=== PATIENT | female | born 1945 | race Caucasian/White ===

== ENCOUNTER 2016-10-13 15:53 | Emergency (ER) | payer MEDICARE ==
[~2016-10-13] VITALS: Ht 167.6 cm; Wt 77.0 kg
[~2016-10-13 15:53] MED LIST: BUSP5TAB3 PO; CLIN1CAP6 PO; HYDR-3533 PO; MELA3CAP2 PO
[2016-10-13 16:00] VITALS: BP 117/82; PULSE 106; RESP 16; TEMP 98.4; O2SAT 99
[2016-10-13] MEDS ORDERED: SODIUM CHLORIDE 0.9% FLUSH 5 ML FLUSH IVF PRN (16:30)
[2016-10-13] MEDS ORDERED: SODIUM CHLOR 0.9% 1000 ML INJ 1,000 ML IV ONE (16:45)
[2016-10-13 16:58] VITALS: O2SAT 99
[2016-10-13 17:01] LABS: BLOOD, URINE TRACE (NEG); GLUCOSE,URINE NEG (NEG); KETONE, URINE NEG (NEG); NITRITE,URINE NEG (NEG)
[2016-10-13 17:08] LABS: METHOD OF COLLECTION CLEAN CATCH; URINE COLOR YELLOW (YELLW/STRAW)
[2016-10-13 17:09] LABS: BACTERIA, URINE RARE /hpf; COMMENT (UR) CULT NOT INDICATED; CULTURE IF INDICATED CULT NOT INDICATED; SQUAMOUS EPITHELIAL CELL URINE > 8 /hpf (0-5)
[2016-10-13 17:13] LABS: AUTOMATED NEUTROPHIL # 3.7 TH/MM3 (1.8-7.7); BASOPHIL % 0.4 % (0.0-2.0); EOSINOPHIL # 0.1 TH/MM3 (0-0.4); EOSINOPHIL % 1.6 % (0.0-4.0); HEMO FLAGS DIFF FINAL; LYMPHOCYTE # 3.1 TH/MM3 (1.0-4.8); MEAN CELL VOLUME 91.9 FL (80.0-100.0); MEAN CORPUSCULAR HEMOGLOBIN 30.7 PG (27.0-34.0); MEAN CORPUSCULAR HGB CONC 33.4 % (32.0-36.0); MONO % 8.7 % (0.0-8.0); NEUT % 48.3 % (16.0-70.0); PLATELET COUNT 344 TH/MM3 (150-450); RED BLOOD COUNT 4.57 MIL/MM3 (4.00-5.30); RED CELL DISTRIBUTION WIDTH 12.5 % (11.6-17.2); WHITE BLOOD COUNT 7.6 TH/MM3 (4.0-11.0)
[2016-10-13 17:21] LABS: CHLORIDE 103 MEQ/L (98-107); SODIUM (NA) 142 MEQ/L (136-145)
[2016-10-13 17:25] LABS: ANION GAP 9 MEQ/L (5-15); BICARBONATE 29.8 MEQ/L (21.0-32.0); BLOOD UREA NITROGEN 16 MG/DL (7-18)
[2016-10-13 17:27] LABS: ALT (GPT) 36 U/L (10-53); AST (GOT) 16 U/L (15-37)
[2016-10-13 17:28] LABS: GLOMERULAR FILTRATION RATE 57 ML/MIN (>89)
[2016-10-13 17:29] LABS: TOTAL BILIRUBIN ADULT 0.3 MG/DL (0.2-1.0)
[2016-10-13 17:30] LABS: ALKALINE PHOSPHATASE 54 U/L (45-117)
[2016-10-13] MEDS ORDERED: IOHEXOL 300 MG/ML 50 ML BTL (for RAD DIAG) IV ONE (18:11)
--- NOTE | 2016-10-13 18:29 | RADHPO ---
EXAM DATE/TIME: 10/13/2016 18:05 [facility] COMPARISON: No previous studies available for comparison. INDICATIONS : Left lower abdomen pain for two days. IV CONTRAST: 85 cc Omnipaque 300 (iohexol) IV ORAL CONTRAST: No oral contrast ingested. RADIATION DOSE: 11.18 CTDIvol (mGy) MEDICAL HISTORY : Carcinoma, breast. SURGICAL HISTORY : Mastectomy, right. section. ENCOUNTER: Initial ACUITY: 1 day PAIN SCALE: 0/10 LOCATION: Left lower quadrant TECHNIQUE: Volumetric scanning of the abdomen and pelvis was performed. Using automated exposure control and ad justment of the mA and/or kV according to patient size, radiation dose was kept as low as reasonably achievable to obtain optimal diagnostic quality images. FINDINGS: LOWER LUNGS: The visualized lower lungs are clear. LIVER: Mild diffuse increase in hepatic density, likely steatosis with some focal sparing in the left lobe. No evidence of mass or biliary ductal dilatation. Tiny calcified gallstones. SPLEEN: Normal size without lesion. PANCREAS: Within normal limits. KIDNEYS: Normal in size and shape. There is no mass, stone or hydronephrosis. ADRENAL GLANDS: Within normal limits. VASCULAR: There is no aortic aneurysm. BOWEL/MESENTERY: Prominent distal colonic diverticulosis. No evidence of abnormal wall thickening, dilatation or focal inflammatory change. No extraluminal gas or fluid. ABDOMINAL WALL: Within normal limits. RETROPERITONEUM: There is no lymphadenopathy. BLADDER: No wall thickening or mass. REPRODUCTIVE: Within normal limits. INGUINAL: There is no lymphadenopathy or hernia. MUSCULOSKELETAL: Within normal limits for patient age. CONCLUSION: Hepatic steatosis. Gallstones. Colonic diverticulosis without definite CT findings of diverticulitis. Reji Lui MD on October 13, 2016 at 18:23 Board Certified Radiologist. This report was verified electronically.
[2016-10-13] MEDS ORDERED: ZOFR4TAB3 SL (18:57)
--- NOTE | 2016-10-13 18:57 | PD ---
HPI Chief Complaint: General Weakness Time Seen by Provider: 16:26 Travel History International Travel<30 days: No Contact w/Intl Traveler<30days: No Traveled to known affect area: No History of Present Illness HPI Patient is 71-year-old female presents today with fatigue for the past day. Patient states that 3 days ago she had abdominal cramping in the left lower quadrant thought she might be having a bout of diverticulitis. She states her abdominal pain has been resolved by by the time she arrived in the emergency department. She states she just feels rundown and fatigued and wanted to have her blood counts checked to make sure she wasn't anemic. Patient states she's had some nausea without vomiting no diarrhea no constipation. No fevers no blood in the stool. No dysuria. PFSH Past Medical History Cancer: Yes (BREAST) Diabetes: No Diminished Hearing: No Tetanus Vaccination: > 5 Years Influenza Vaccination: Yes ?: Not Menopausal: Yes Past Surgical History Section: Yes Gynecologic Surgery: Yes (RT BREAST MASTECTOMY) Other Surgery: Yes (MOD RIGHT MASTECTOMY. ) Social History Alcohol Use: No Tobacco Use: No Substance Use: No Allergies-Medications (Allergen,Severity, Reaction): Coded Allergies: Avelox (Verified Allergy, Severe, Anaphylaxis, 10/13/16) Levaquin (Verified Allergy, Severe, Anaphylaxis, 10/13/16) Reported Meds & Prescriptions Reported Meds & Active Scripts Active Flagyl (Metronidazole) 500 Mg Tab 500 Mg PO BID 7 Days Keflex (Cephalexin) 500 Mg Cap 500 Mg PO Q6H 7 Days Zofran Odt (Ondansetron Odt) 4 Mg Tab 4 Mg SL Q6HR PRN Review of Systems Except as stated in HPI: all other systems reviewed are Neg Physical Exam Narrative GENERAL: [Well-developed well-nourished in no apparent distress SKIN: Warm and dry. HEAD: Atraumatic. Normocephalic. EYES: Pupils equal and round. No scleral icterus. No injection or drainage. ENT: No nasal bleeding or discharge. Mucous membranes pink and moist. NECK: Trachea midline. No JVD. CARDIOVASCULAR: Regular rate and rhythm. No murmur appreciated. RESPIRATORY: No accessory muscle use. Clear to auscultation. Breath sounds equal bilaterally. GASTROINTESTINAL: Abdomen soft, non-tender, nondistended. Hepatic and splenic margins not palpable. MUSCULOSKELETAL: No obvious deformities. No clubbing. No cyanosis. No edema. NEUROLOGICAL: Awake and alert. No obvious cranial nerve deficits. Motor grossly within normal limits. Normal speech. PSYCHIATRIC: Appropriate mood and affect; insight and judgment normal. Data Data Last Documented VS Vital Signs Date Time Temp Pulse Resp B/P Pulse Ox O2 Delivery O2 Flow Rate FiO2 10/13/16 19:36 98 10/13/16 19:05 82 16 124/69 Room Air 10/13/16 16:00 98.4 Orders Complete Blood Count With Diff (10/13/16 16:27) Comprehensive Metabolic Panel (10/13/16 16:27) Lipase (10/13/16 16:27) Urinalysis - C+S If Indicated (10/13/16 16:27) Iv Access Insert/Monitor (10/13/16 16:27) Ecg Monitoring (10/13/16 16:27) Oximetry (10/13/16 16:27) Sodium Chloride 0.9% Flush (Ns Flush) (10/13/16 16:30) Electrocardiogram (10/13/16 16:27) Troponin I (10/13/16 16:27) Sodium Chlor 0.9% 1000 Ml Inj (Ns 1000 M (10/13/16 16:45) Ct Abd/Pel W Iv Contrast(Rout) (10/13/16 ) Iohexol 300 Inj (Omnipaque 300 Inj) (10/13/16 18:11) Cephalexin (Keflex) (10/13/16 19:15) Metronidazole (Flagyl) (10/13/16 19:15) Labs Laboratory Tests Test 10/13/16 10/13/16 16:45 16:50 Urine Collection Type CLEAN CATCH Urine Color YELLOW Urine Turbidity CLEAR Urine pH 6.0 Urine Specific [place] 1.022 Urine Protein NEG mg/dL Urine Glucose (UA) NEG mg/dL Urine Ketones NEG mg/dL Urine Occult Blood TRACE Urine Nitrite NEG Urine Bilirubin NEG Urine Leukocyte Esterase TRACE Urine RBC 4-9 /hpf Urine WBC 6-8 /hpf Urine Squamous Epithelial > 8 /hpf Cells Urine Bacteria RARE /hpf Microscopic Urinalysis Comment CULT NOT INDICATED Urine Collection Time 16:45 White Blood Count 7.6 TH/MM3 Red Blood Count 4.57 MIL/MM3 Hemoglobin 14.1 GM/DL Hematocrit 42.0 % Mean Corpuscular Volume 91.9 FL Mean Corpuscular Hemoglobin 30.7 PG Mean Corpuscular Hemoglobin 33.4 % Concent Red Cell Distribution Width 12.5 % Platelet Count 344 TH/MM3 Mean Platelet Volume 7.1 FL Neutrophils (%) (Auto) 48.3 % Lymphocytes (%) (Auto) 41.0 % Monocytes (%) (Auto) 8.7 % Eosinophils (%) (Auto) 1.6 % Basophils (%) (Auto) 0.4 % Neutrophils # (Auto) 3.7 TH/MM3 Lymphocytes # (Auto) 3.1 TH/MM3 Monocytes # (Auto) 0.7 TH/MM3 Eosinophils # (Auto) 0.1 TH/MM3 Basophils # (Auto) 0.0 TH/MM3 CBC Comment DIFF FINAL Differential Comment Sodium Level 142 MEQ/L Potassium Level 4.0 MEQ/L Chloride Level 103 MEQ/L Carbon Dioxide Level 29.8 MEQ/L Anion Gap 9 MEQ/L Blood Urea Nitrogen 16 MG/DL Creatinine 0.96 MG/DL Estimat Glomerular Filtration 57 ML/MIN Rate Random Glucose 106 MG/DL Calcium Level 9.4 MG/DL Total Bilirubin 0.3 MG/DL Aspartate Amino Transf 16 U/L (AST/SGOT) Alanine Aminotransferase 36 U/L (ALT/SGPT) Alkaline Phosphatase 54 U/L Troponin I LESS THAN 0.02 NG/ML Total Protein 8.1 GM/DL Albumin 3.8 GM/DL Lipase 169 U/L MDM Medical Decision Making Medical Screen Exam Complete: Yes Emergency Medical Condition: Yes Interpretation(s) EKG shows normal sinus rhythm with normal axis normal R-wave progression. No concerning ST T changes intervals within normal limits. This normal EKG. Differential Diagnosis Diverticulitis, dehydration, acute kidney injury, electrolyte abnormality, cardiac etiology unlikely, fatigue, gastritis, gastritis, colitis. Narrative Course Patient was roomed in the emergency department, pain-free on arrival. Patient was given 1 L normal saline. Labs are reassuring. However patient does have microscopic hematuria. Nitrate and leukocyte Estrace free. Discussed with the patient need to consider CAT scan as part of his workup for hematuria and she is agreeable. CAT scan shows diverticulosis without diverticulitis. No masses observed. Will treat with Keflex that she has a Levaquin allergy, as well as Flagyl for probable diverticulitis flare now resolved. Discussed need follow- up with primary care physician and return to ED criteria. She isn't amenable and feels well on discharge. Stable for discharge. Diagnosis Primary Impression: Abdominal cramping Additional Impressions: Dehydration Fatigue Med/Other Pt SpecificInfo: Prescription(s) given Scripts Metronidazole (Flagyl)500 Mg [id number] Mg PO BID 7 Days Ref 0 Prov:Ranjit Garg MD 10/13/16 Cephalexin (Keflex)500 Mg [id number] Mg PO Q6H 7 Days Ref 0 Prov:Ranjit Garg MD 10/13/16 Ondansetron Odt (Zofran Odt)4 Mg Tab4 Mg SL Q6HR PRN (Nausea/Vomiting) #30 TAB Ref 0 Prov:Ranjit Garg MD 10/13/16 Disposition: 01 DISCHARGE HOME Condition: Stable Ranjit Garg MD Oct 13, 2016 18:57
[2016-10-13 19:05] VITALS: BP 124/69; PULSE 82; RESP 16; O2SAT 98
[2016-10-13] MEDS ORDERED: METR-1 PO (19:08)
[2016-10-13] MEDS ORDERED: CEPH-460 PO (19:08)
[2016-10-13] MEDS ORDERED: CEPHALEXIN MONOHYDRATE 500 MG CAP PO ONE (19:15)
[2016-10-13] MEDS ORDERED: metroNIDAZOLE 500 MG TAB PO ONE (19:15)
--- NOTE | 2016-10-14 17:13 | EKG ---
Date Performed: 10/13/2016 Time Performed: 16:32:36 PTAGE: 71 years EKG: Sinus rhythm Undulating baseline may affect reading NO PREVIOUS TRACING DOCTOR: Heraclio Hyde Interpretating Date/Time 10/14/2016 17:11:09
== END 2016-10-13 19:31 | disposition home or self-care (01) ==
LOC: PHED 15:53
DX: R10.9 Unspecified abdominal pain (principal); E86.0 Dehydration; R53.83 Other fatigue; R11.0 Nausea; R31.29 Other microscopic hematuria; K57.90 Diverticulosis of intestine, part unspecified, without perforation or abscess without bleeding; Z85.3 Personal history of malignant neoplasm of breast
CPT/HCPCS: 74177; 80053; 81001; 83690; 84484; 85025; 93005; 96360; 99284; J7030; Q9967

== ENCOUNTER 2017-04-04 06:26 | Emergency (ER) | payer MEDICARE ==
[~2017-04-04] VITALS: Ht 167.6 cm; Wt 77.3 kg
[~2017-04-04 06:26] MED LIST changes: -BUSP5TAB3 PO; +CEPH-460 PO; -CLIN1CAP6 PO; -HYDR-3533 PO; -MELA3CAP2 PO; +METR-1 PO; +ZOFR4TAB3 SL
[2017-04-04 06:36] VITALS: BP 122/81; PULSE 84; RESP 16; TEMP 98; O2SAT 97
--- NOTE | 2017-04-04 07:16 | PD ---
HPI Chief Complaint: General Weakness Time Seen by Provider: 07:15 Travel History International Travel<30 days: No Contact w/Intl Traveler<30days: No Traveled to known affect area: No History of Present Illness HPI 71-year-old female came to the emergency room with history of feeling lightheaded since yesterday. Patient went to see her primary care where her UA was checked and she was diagnosed with UTI. She was discharged home on Bactrim. Patient says she has taken 2 pills so far and has been drinking fluid. She feels a little bit better but this morning when she woke up she was still was little lightheaded. No history of vomiting or diarrhea. She feels a little nauseous. Feels like she is little disbalance. Vital signs were otherwise stable. Patient had history of breast cancer. Ears ago and is in total remission now as per her. She is not on any daily medications she said. Otherwise is healthy. She told me she usually does not drink a lot of fluid and thinks she could be dehydrated. [facility] Past Medical History Narrative Medical List of her past medical, surgical, social and family history was reviewed from the nursing note. Cancer: Yes (BREAST) Diabetes: No Diminished Hearing: No Menopausal: Yes Past Surgical History Section: Yes Gynecologic Surgery: Yes (RT BREAST MASTECTOMY) Other Surgery: Yes (MOD RIGHT MASTECTOMY. ) Social History Alcohol Use: No Tobacco Use: No Substance Use: No Allergies-Medications (Allergen,Severity, Reaction): Coded Allergies: Avelox (Verified Allergy, Severe, Anaphylaxis, 10/13/16) Levaquin (Verified Allergy, Severe, Anaphylaxis, 10/13/16) Comments List of her allergies reviewed from the nursing note. Reported Meds & Prescriptions Reported Meds & Active Scripts Active Reported Bactrim DS (Sulfamethoxazole-Trimethoprim) 800-160 Mg Tab 1 Tab PO BID Narrative Medication List of her home medications reviewed from the nursing note. Review of Systems Except as stated in HPI: all other systems reviewed are Neg Physical Exam Narrative GENERAL: Awake, alert, moderate distress SKIN: Focused skin assessment warm/dry. HEAD: Atraumatic. Normocephalic. EYES: Pupils equal and round. No scleral icterus. No injection or drainage. ENT: No nasal bleeding or discharge. Dry mucous membrane NECK: Trachea midline. No JVD. CARDIOVASCULAR: Regular rate and rhythm. No murmur appreciated. RESPIRATORY: No accessory muscle use. Clear to auscultation. Breath sounds equal bilaterally. GASTROINTESTINAL: Abdomen soft, non-tender, nondistended. Hepatic and splenic margins not palpable. MUSCULOSKELETAL: No obvious deformities. No clubbing. No cyanosis. No edema. NEUROLOGICAL: Awake and alert. No obvious cranial nerve deficits. Motor grossly within normal limits. Normal speech. PSYCHIATRIC: Appropriate mood and affect; insight and judgment normal. Data Data Last Documented VS Vital Signs Date Time Temp Pulse Resp B/P Pulse Ox O2 Delivery O2 Flow Rate FiO2 04/04/17 08:43 84 16 149/79 82 16 156/82 88 16 139/73 04/04/17 07:52 98 Room Air 04/04/17 06:36 98.0 Orders Urinalysis - C+S If Indicated (04/04/17 07:05) Complete Blood Count With Diff (04/04/17 07:28) Comprehensive Metabolic Panel (04/04/17 07:28) Lipase (04/04/17 07:28) Iv Access Insert/Monitor (04/04/17 07:28) Ecg Monitoring (04/04/17 07:28) Oximetry (04/04/17 07:28) Sodium Chloride 0.9% Flush (Ns Flush) (04/04/17 07:30) Electrocardiogram (04/04/17 07:28) Troponin I (04/04/17 07:28) Sodium Chlorid 0.9% 500 Ml Inj (Ns 500 M (04/04/17 07:45) Ct Brain W/O Iv Contrast(Rout) (04/04/17 ) Labs Laboratory Tests Test 04/04/17 04/04/17 07:09 07:49 Urine Collection Type CLEAN CATCH Urine Color YELLOW Urine Turbidity CLEAR Urine pH 6.0 Urine Specific [place] 1.015 Urine Protein NEG mg/dL Urine Glucose (UA) NEG mg/dL Urine Ketones NEG mg/dL Urine Occult Blood TRACE Urine Nitrite NEG Urine Bilirubin NEG Urine Leukocyte Esterase SMALL Urine RBC 0-3 /hpf Urine WBC 3-5 /hpf Urine Squamous Epithelial 6-8 /hpf Cells Urine Bacteria OCC /hpf Microscopic Urinalysis Comment CULT NOT INDICATED Urine Collection Time 07:09 White Blood Count 7.3 TH/MM3 Red Blood Count 4.48 MIL/MM3 Hemoglobin 13.7 GM/DL Hematocrit 41.2 % Mean Corpuscular Volume 91.9 FL Mean Corpuscular Hemoglobin 30.5 PG Mean Corpuscular Hemoglobin 33.2 % Concent Red Cell Distribution Width 13.9 % Platelet Count 301 TH/MM3 Mean Platelet Volume 7.0 FL Neutrophils (%) (Auto) 69.6 % Lymphocytes (%) (Auto) 22.7 % Monocytes (%) (Auto) 6.5 % Eosinophils (%) (Auto) 0.8 % Basophils (%) (Auto) 0.4 % Neutrophils # (Auto) 5.0 TH/MM3 Lymphocytes # (Auto) 1.7 TH/MM3 Monocytes # (Auto) 0.5 TH/MM3 Eosinophils # (Auto) 0.1 TH/MM3 Basophils # (Auto) 0.0 TH/MM3 CBC Comment DIFF FINAL Differential Comment Sodium Level 141 MEQ/L Potassium Level 3.7 MEQ/L Chloride Level 105 MEQ/L Carbon Dioxide Level 26.1 MEQ/L Anion Gap 10 MEQ/L Blood Urea Nitrogen 11 MG/DL Creatinine 0.93 MG/DL Estimat Glomerular Filtration 60 ML/MIN Rate Random Glucose 113 MG/DL Calcium Level 9.4 MG/DL Total Bilirubin 0.4 MG/DL Aspartate Amino Transf 15 U/L (AST/SGOT) Alanine Aminotransferase 33 U/L (ALT/SGPT) Alkaline Phosphatase 53 U/L Troponin I LESS THAN 0.02 NG/ML Total Protein 7.6 GM/DL Albumin 3.6 GM/DL Lipase 138 U/L MDM Medical Decision Making Medical Screen Exam Complete: Yes Emergency Medical Condition: Yes Medical Record Reviewed: Yes Interpretation(s) Twelve-lead EKG was reviewed by me. Normal sinus rhythm, left axis deviation, nonspecific ST-T wave changes. Heart rate of 79 bpm. Differential Diagnosis Dehydration, ACS, anxiety Narrative Course 8:34 AM had ordered some basic blood test including troponin. They're all within normal limits. Patient requested fluid bolus and I ordered 500 cc of fluid bolus in spite of the fact that lab work does not point to any dehydration. Patient currently says she feels better after the fluid. I am still not sure of the main concern of this patient. She did go to see her primary care as she was diagnosed with UTI but was told everything else was okay. She certainly was not convinced and hence came to this emergency room. She insisted that this is from dehydration which could well be the case although the blood test seems to be within normal limits. I have asked the nurse to ambulate her. If she ambulates well and does not feel dizzy I'll discharge her. 8:40 AM patient was ambulated and she said she still felt a little wobbly. Based on this I have ordered a CT scan of her head. She asked me if she would need more fluid to which I responded not have asked the nurse to check her orthostatic vital signs as well. 10:[address] scan is within normal limits. Patient will be discharged home. Procedures EKG Prior to Arrival: No Diagnosis Primary Impression: Dizziness Referrals: Primary Care Physician 1 day Patient Instructions: Moderate Sedation in Children (ED) Additional Instructions: Please return to the ER if the condition worsens or any other new concerns. Otherwise follow-up with your primary care in 1-2 days. You should not be driving until his symptoms have completely resolved. Med/Other Pt SpecificInfo: No Change to Meds Disposition: 01 DISCHARGE HOME Condition: Stable Washington Cordova MD Apr 04, 2017 07:16
[2017-04-04 07:18] LABS: BLOOD, URINE TRACE (NEG); GLUCOSE,URINE NEG (NEG); KETONE, URINE NEG (NEG); NITRITE,URINE NEG (NEG)
[2017-04-04 07:26] LABS: METHOD OF COLLECTION CLEAN CATCH
[2017-04-04 07:27] LABS: URINE COLOR YELLOW (YELLW/STRAW)
[2017-04-04 07:28] LABS: BACTERIA, URINE OCC /hpf; COMMENT (UR) CULT NOT INDICATED; CULTURE IF INDICATED CULT NOT INDICATED; RBC, URINE 0-3 /hpf (0-3)
[2017-04-04] MEDS ORDERED: SODIUM CHLORIDE 0.9% FLUSH 10 ML FLUSH IV FLUSH PRN (07:30)
[2017-04-04 07:41] VITALS: O2SAT 98
[2017-04-04] MEDS ORDERED: BACT800T5 PO (07:41)
[2017-04-04] MEDS ORDERED: SODIUM CHLORID 0.9% 500 ML INJ 500 ML IV ONE (07:45)
[2017-04-04 07:52] VITALS: BP 128/68; PULSE 78; RESP 16; O2SAT 98
[2017-04-04 08:03] LABS: BASOPHIL % 0.4 % (0.0-2.0); EOSINOPHIL # 0.1 TH/MM3 (0-0.4); EOSINOPHIL % 0.8 % (0.0-4.0); HEMATOCRIT 41.2 % (35.0-46.0); HEMO FLAGS DIFF FINAL; LYMPH % 22.7 % (9.0-44.0); LYMPHOCYTE # 1.7 TH/MM3 (1.0-4.8); MEAN CELL VOLUME 91.9 FL (80.0-100.0); MEAN CORPUSCULAR HEMOGLOBIN 30.5 PG (27.0-34.0); MEAN CORPUSCULAR HGB CONC 33.2 % (32.0-36.0); MONO % 6.5 % (0.0-8.0); NEUT % 69.6 % (16.0-70.0); PLATELET COUNT 301 TH/MM3 (150-450); RED BLOOD COUNT 4.48 MIL/MM3 (4.00-5.30); RED CELL DISTRIBUTION WIDTH 13.9 % (11.6-17.2); WHITE BLOOD COUNT 7.3 TH/MM3 (4.0-11.0)
[2017-04-04 08:11] LABS: CHLORIDE 105 MEQ/L (98-107); POTASSIUM 3.7 MEQ/L (3.5-5.1); SODIUM (NA) 141 MEQ/L (136-145)
[2017-04-04 08:15] LABS: ANION GAP 10 MEQ/L (5-15); BICARBONATE 26.1 MEQ/L (21.0-32.0); BLOOD UREA NITROGEN 11 MG/DL (7-18)
[2017-04-04 08:18] LABS: ALT (GPT) 33 U/L (10-53); AST (GOT) 15 U/L (15-37); GLOMERULAR FILTRATION RATE 60 ML/MIN (>89)
[2017-04-04 08:20] LABS: TOTAL BILIRUBIN ADULT 0.4 MG/DL (0.2-1.0)
[2017-04-04 08:21] LABS: ALKALINE PHOSPHATASE 53 U/L (45-117)
[2017-04-04 08:43] VITALS: BP_SYST 139; BP_SYST 149; BP_SYST 156; BP_DIAS 73; BP_DIAS 79; BP_DIAS 82; RESP 16
--- NOTE | 2017-04-04 09:49 | RADRPT ---
EXAM DATE/TIME: 04/04/2017 09:27 [facility] COMPARISON: CT BRAIN W/O CONTRAST, April 22, 2013, 13:44. INDICATIONS : Dizziness. RADIATION DOSE: 59.60 CTDIvol (mGy) MEDICAL HISTORY : Carcinoma, breast. SURGICAL HISTORY : Mastectomy, right. ENCOUNTER: Initial ACUITY: 2 days PAIN SCALE: 0/10 LOCATION: Bilateral cranial TECHNIQUE: Multiple contiguous axial images were obtained of the head. Using automated exposure control and adj ustment of the mA and/or kV according to patient size, radiation dose was kept as low as reasonably a chievable to obtain optimal diagnostic quality images. DICOM format image data is available electro nically for review and comparison. FINDINGS: CEREBRUM: The ventricles are normal for age. No evidence of midline shift, mass lesion, hemorrhage or acute in farction. No extra-axial fluid collections are seen. POSTERIOR FOSSA: The cerebellum and brainstem are intact. The 4th ventricle is midline. The cerebellopontine angle i s unremarkable. EXTRACRANIAL: The visualized portion of the orbits is intact. SKULL: The calvaria is intact. No evidence of skull fracture. CONCLUSION: 1. No acute intracranial abnormality. Kareem Merida MD on April 04, 2017 at 9:45 Board Certified Radiologist. This report was verified electronically.
--- NOTE | 2017-04-04 15:37 | EKG ---
Date Performed: 04/04/2017 Time Performed: 07:39:12 PTAGE: 71 years EKG: Sinus rhythm NORMAL ECG PREVIOUS TRACING : 10/13/2016 16.32 DOCTOR: Justin Tsang Interpretating Date/Time 04/04/2017 15:35:39
== END 2017-04-04 10:26 | disposition home or self-care (01) ==
LOC: PHED 06:26
DX: R42 Dizziness and giddiness (principal); Z90.11 Acquired absence of right breast and nipple; Z85.3 Personal history of malignant neoplasm of breast
CPT/HCPCS: 70450; 80053; 81001; 83690; 84484; 85025; 93005; 96360; 99285; J7040

== ENCOUNTER 2017-12-25 10:50 | Emergency (ER) | payer MEDICARE ==
[~2017-12-25] VITALS: Ht 167.6 cm; Wt 76.0 kg
[~2017-12-25 10:50] MED LIST changes: +BACT800T5 PO; -CEPH-460 PO; -METR-1 PO; -ZOFR4TAB3 SL
[2017-12-25 10:54] VITALS: BP 142/75; PULSE 117; RESP 18; TEMP 97.6; O2SAT 97
[2017-12-25] MEDS ORDERED: SODIUM CHLOR 0.9% 1000 ML INJ 1,000 ML IV SCH (11:11)
[2017-12-25 11:13] LABS: BILIRUBIN, URINE NEG (NEG); BLOOD, URINE NEG (NEG); GLUCOSE,URINE NEG (NEG); KETONE, URINE NEG (NEG); NITRITE,URINE NEG (NEG); PH, URINE 6.5 (5.0-8.5); URINE COLOR YELLOW (YELLW/STRAW); URINE LEUKOCYTE ESTERASE TRACE (NEG)
[2017-12-25] MEDS ORDERED: METR1TAB76 PO (11:13)
[2017-12-25] MEDS ORDERED: ONDANSETRON HCL 4 MG/2 ML VIAL IVP ONE (11:15)
[2017-12-25] MEDS ORDERED: SODIUM CHLORIDE 0.9% FLUSH 10 ML FLUSH IV FLUSH PRN (11:15)
[2017-12-25 11:19] LABS: SQUAMOUS EPITHELIAL CELL URINE 0-5 /hpf (0-5); WBC, URINE 0-2 /hpf (0-5)
[2017-12-25 11:23] VITALS: RESP 16; O2SAT 96
--- NOTE | 2017-12-25 11:23 | PD ---
HPI Chief Complaint: Abdominal Pain Time Seen by Provider: 11:03 Travel History International Travel<30 days: No Contact w/Intl Traveler<30days: No Traveled to known affect area: No History of Present Illness HPI 72-year-old female reports a vague sense of dizziness and the belief that she is dehydrated. The sensation of cold sweats is also reported. The patient reports a history of diverticulitis and underwent CT scanning 2 days prior and was subsequently placed on Flagyl and Bactrim. She reports resolution of left lower quadrant pain which had led to the CT evaluation however the symptoms as described began yesterday. The patient administered Bactrim and Flagyl dose this morning thinking that her symptoms may have been from the antibiotics. No urinary complaint. No vaginal bleeding or discharge. PFSH Past Medical History Cancer: Yes (BREAST) Diabetes: No Diminished Hearing: No ?: Not Menopausal: Yes Past Surgical History Section: Yes Gynecologic Surgery: Yes (RT BREAST MASTECTOMY) Other Surgery: Yes (MOD RIGHT MASTECTOMY. ) Social History Alcohol Use: No Tobacco Use: No Substance Use: No Allergies-Medications (Allergen,Severity, Reaction): Coded Allergies: Quinolones (Verified Allergy, Severe, 12/25/17) levofloxacin (Unverified Allergy, Severe, Anaphylaxis, 12/25/17) moxifloxacin (Unverified Allergy, Severe, Anaphylaxis, 12/25/17) Reported Meds & Prescriptions Reported Meds & Active Scripts Active Reported Metronidazole 500 Mg Tab 500 Mg PO QID Bactrim DS (Sulfamethoxazole-Trimethoprim) 800-160 Mg Tab 1 Tab PO BID Review of Systems Except as stated in HPI: all other systems reviewed are Neg General / Constitutional: No: Fever Physical Exam Narrative GENERAL: 72-year-old female pleasant well-nourished well-developed Vital Signs Date Time Temp Pulse Resp B/P (MAP) Pulse Ox O2 Delivery O2 Flow Rate FiO2 12/25/17 10:54 97.6 117 18 142/75 (97) 97 SKIN: Warm and dry. HEAD: Atraumatic. Normocephalic. EYES: Pupils equal and round. No scleral icterus. No injection or drainage. ENT: No nasal bleeding or discharge. Mucous membranes pink and moist. NECK: Trachea midline. No JVD. CARDIOVASCULAR: Tachycardia. Regular rhythm. RESPIRATORY: No accessory muscle use. Clear to auscultation. Breath sounds equal bilaterally. GASTROINTESTINAL: Soft. No focus of tenderness. MUSCULOSKELETAL: Extremities without clubbing, cyanosis, or edema. No obvious deformities. NEUROLOGICAL: Awake and alert. No obvious cranial nerve deficits. Motor grossly within normal limits. Five out of 5 muscle strength in the arms and legs. Normal speech. PSYCHIATRIC: Appropriate mood and affect; insight and judgment normal. Data Data Last Documented VS Vital Signs Date Time Temp Pulse Resp B/P (MAP) Pulse Ox O2 Delivery O2 Flow Rate FiO2 12/25/17 12:53 12/25/17 12:19 77 16 96 Room Air 12/25/17 10:54 97.6 Orders Orders Urinalysis - C+S If Indicated (12/25/17 10:55) Basic Metabolic Panel (Bmp) (12/25/17 11:11) Complete Blood Count With Diff (12/25/17 11:11) Iv Access Insert/Monitor (12/25/17 11:11) Ecg Monitoring (12/25/17 11:11) Oximetry (12/25/17 11:11) Ondansetron Inj (Zofran Inj) (12/25/17 11:15) Sodium Chlor 0.9% 1000 Ml Inj (Ns 1000 M (12/25/17 11:11) Sodium Chloride 0.9% Flush (Ns Flush) (12/25/17 11:15) Sodium Chlor 0.9% 1000 Ml Inj (Ns 1000 M (12/25/17 12:15) Ed Discharge Order (12/25/17 12:53) Labs Laboratory Tests Test 12/25/17 11:00 12/25/17 11:15 Urine Color YELLOW Urine Turbidity CLEAR Urine pH 6.5 Urine Specific [place] 1.015 Urine Protein NEG mg/dL Urine Glucose (UA) NEG mg/dL Urine Ketones NEG mg/dL Urine Occult Blood NEG Urine Nitrite NEG Urine Bilirubin NEG Urine Urobilinogen 0.2 MG/DL Urine Leukocyte Esterase TRACE Urine WBC 0-2 /hpf Urine Squamous Epithelial Cells 0-5 /hpf Microscopic Urinalysis Comment CULT NOT INDICATED White Blood Count 7.1 TH/MM3 Red Blood Count 4.49 MIL/MM3 Hemoglobin 13.6 GM/DL Hematocrit 41.3 % Mean Corpuscular Volume 92.0 FL Mean Corpuscular Hemoglobin 30.3 PG Mean Corpuscular Hemoglobin Concent 33.0 % Red Cell Distribution Width 12.5 % Platelet Count 366 TH/MM3 Mean Platelet Volume 7.3 FL Neutrophils (%) (Auto) 57.9 % Lymphocytes (%) (Auto) 32.0 % Monocytes (%) (Auto) 8.4 % Eosinophils (%) (Auto) 1.2 % Basophils (%) (Auto) 0.5 % Neutrophils # (Auto) 4.1 TH/MM3 Lymphocytes # (Auto) 2.3 TH/MM3 Monocytes # (Auto) 0.6 TH/MM3 Eosinophils # (Auto) 0.1 TH/MM3 Basophils # (Auto) 0.0 TH/MM3 CBC Comment DIFF FINAL Differential Comment Blood Urea Nitrogen 11 MG/DL Creatinine 1.00 MG/DL Random Glucose 121 MG/DL Calcium Level 9.7 MG/DL Sodium Level 136 MEQ/L Potassium Level 4.1 MEQ/L Chloride Level 101 MEQ/L Carbon Dioxide Level 26.5 MEQ/L Anion Gap 9 MEQ/L Estimat Glomerular Filtration Rate 55 ML/MIN MDM Medical Decision Making Medical Screen Exam Complete: Yes Emergency Medical Condition: Yes Medical Record Reviewed: Yes Differential Diagnosis Constipation, Gastritis, Acute Cholecystitis, Biliary Colic, Pancreatitis, DILLON , Hepatitis, Bowel Obstruction, Cystitis, Mesenteric Ischemia, AAA, Appendicitis , Renal Stone/Hydronephrosis, GERD, perforated viscous Narrative Course CBC & BMP Diagram 12/25/17 11:15 Calcium Level 9.7 UA no UTI IVF and zofran given pt to continue Bactrim and Flagyl pt ok for discharge home pt to follow up with primary Diagnosis Primary Impression: Dizziness Additional Impressions: Dehydration Diverticulitis Referrals: Chris Nieto MD call for appointment Med/Other Pt SpecificInfo: No Change to Meds Disposition: 01 DISCHARGE HOME Condition: Stable Gerry Hyde MD Dec 25, 2017 11:23
[2017-12-25 11:24] LABS: AUTOMATED NEUTROPHIL # 4.1 TH/MM3 (1.8-7.7); BASOPHIL % 0.5 % (0.0-2.0); EOSINOPHIL # 0.1 TH/MM3 (0-0.4); EOSINOPHIL % 1.2 % (0.0-4.0); HEMATOCRIT 41.3 % (35.0-46.0); HEMOGLOBIN 13.6 GM/DL (11.6-15.3); LYMPHOCYTE # 2.3 TH/MM3 (1.0-4.8); MEAN CORPUSCULAR HEMOGLOBIN 30.3 PG (27.0-34.0); MEAN PLATELET VOLUME 7.3 FL (7.0-11.0); MONO % 8.4 % (0.0-8.0); MONOCYTE # 0.6 TH/MM3 (0-0.9); NEUT % 57.9 % (16.0-70.0); PLATELET COUNT 366 TH/MM3 (150-450); RED BLOOD COUNT 4.49 MIL/MM3 (4.00-5.30); RED CELL DISTRIBUTION WIDTH 12.5 % (11.6-17.2); WHITE BLOOD COUNT 7.1 TH/MM3 (4.0-11.0)
[2017-12-25 11:34] LABS: CALCIUM 9.7 MG/DL (8.5-10.1)
[2017-12-25 11:35] LABS: BICARBONATE 26.5 MEQ/L (21.0-32.0)
[2017-12-25] MEDS ORDERED: SODIUM CHLOR 0.9% 1000 ML INJ 1,000 ML IV ONE (12:15)
[2017-12-25 12:19] VITALS: BP 121/63; PULSE 77; RESP 16; O2SAT 96
== END 2017-12-25 13:25 | disposition home or self-care (01) ==
LOC: PHED 10:50
DX: E86.0 Dehydration (principal); K57.92 Diverticulitis of intestine, part unspecified, without perforation or abscess without bleeding; Z85.3 Personal history of malignant neoplasm of breast; Z90.11 Acquired absence of right breast and nipple; Z88.8 Allergy status to other drugs, medicaments and biological substances; Z79.899 Other long term (current) drug therapy
CPT/HCPCS: 80048; 81001; 85025; 96361; 96374; 99284; J2405; J7030